=== PATIENT | male | born 1995 | race Caucasian/White ===

== ENCOUNTER 2020-07-11 12:57 | Emergency (ER) | payer BC, OTHER, SELFPAY ==
--- NOTE | ~2020-07-11 | XR_ITS ---
EXAMINATION: XR abdomen/kub 1V DATE: 07/11/2020 13:36 INDICATION: Kidney stones, back pain and hematuria. TECHNIQUE: A supine view of the abdomen on 2 radiographs was obtained. COMPARISON: None. FINDINGS: Moderate amount of stool scattered throughout the colon. No dilated loops of gas-filled bowel to sugg est obstruction. 2-3 mm calcification in the pelvis projecting near the region of the left ureteroves icular junction. There are 3 additional approximately 2 mm punctate densities projecting over the rig ht kidney suspicious for additional nephrolithiasis. IMPRESSION: 1. Likely nephrolithiasis with three 2 mm possible right renal stones and 2-3 mm likely stone in the region of the left ureterovesicular junction. Reviewed, dictated and finalized at location A. IMPRESSION: 1. Likely nephrolithiasis with three 2 mm possible right renal stones and 2-3 m m likely stone in the region of the left ureterovesicular junction.
[2020-07-11 13:05] VITALS: BP 133/77; PULSE 86; RESP 16; TEMP 36.3; O2SAT 99
--- NOTE | 2020-07-11 13:29 | ED.GENADULT ---
HPI - General Adult General Chief complaint: Urogenital-Male Stated complaint: poss UTI Time Seen by Provider: 07/11/20 13:16 Source: patient and RN notes reviewed Mode of arrival: ambulatory Limitations: no limitations History of Present Illness HPI narrative: 24-year-old male presents with complaints of dysuria with decrease urine output for the past 1-2 days. Adam reports dysuria with pain at tip of penis, diagnosis with kidney stones at [facility] and given 4 Flomax pills with some relief. No treatment since start of symptoms. No significant groin pain. No genital discharge. No concern for a STD. No fever or chills. No nausea, vomiting, or abdominal pain. No flank pain. Tolerating po intake well. Exacerbating factors consists of urinating. Denies hematuria and genital bleeding. No blood in stool or constipation. Last BM was this morning, normal. No chest pain or dyspnea. Remains active. The patient reports he have not been diagnosed with COVID-19. The patient reports he is not waiting for the results of a COVID-19 lab test. The patient reports he do not have weakness or fatigue. The patient reports he do not have a new or worsening cough. The patient reports he do not have any rhinorrhea, congestion, loss of taste or smell, sore throat, and diarrhea. Denies recent traveling. Denies concerns for COVID-19 or exposures been home with limited outdoor exposure except for essential household needs, work, and return home. At this time, patient is not suspected of having COVID-19. Some parts of this dictation were generated by voice recognition software and may contain typographical and/or grammatical inaccuracies. Related Data Home Medications Medication Instructions Recorded Confirmed gabapentin 600 mg PO TID 07/11/20 07/11/20 nortriptyline 25 mg PO DAILY 07/11/20 07/11/20 Allergies Allergy/AdvReac Type Severity Reaction Status Date / Time Sulfa (Sulfonamide Allergy Rash Verified 07/11/20 13:13 Antibiotics) Review of Systems Review of Systems: Narrative: CONSTITUTIONAL: Denies fever, chills, sweats. EYES: Denies visual changes, redness, discharge. ENT: Denies rhinorrhea, congestion, sore throat, otalgia. CARDIOVASCULAR: Denies chest pain, palpitations, edema. RESPIRATORY: Denies dyspnea, wheezing, cough. GASTROINTESTINAL: Denies nausea, vomiting, diarrhea, abdominal pain. GENITOURINARY: Denies hematuria, abnormal discharge. Complains of dysuria with decrease urination. SKIN: Denies rash or itching. MUSCULOSKELETAL: Denies acute back pain, joint pain, or myalgia. NEUROLOGIC: Denies numbness or focal weakness. PSYCHIATRIC: Denies anxiety or depression. All other systems reviewed are negative, except as documented in HPI and below. [facility] Past Medical History Medical History (Updated 07/12/20 @ 00:00 by Crissy Lundberg) Nerve damage RT arm Renal calculi Surgical History Surgical History (Updated 07/11/20 @ 13:35 by LARISSA Holloway) History of surgery on upper extremity RT Family History Family History (Updated 07/11/20 @ 13:36 by LARISSA Holloway) Father Alive and well Mother Hypertension Adam believes Social History Social History (Updated 07/11/20 @ 13:36 by LARISSA Holloway) Smoking status: Never smoker Tobacco type: cigarettes Second hand tobacco smoke exposure: No Alcohol intake: current Substance use: never Living arrangements: with family Occupation/Education: occupation Gender identity (if verbalized by the patient): Male Sexual Orientation (if Verbalized by the Patient): Straight or Heterosexual Comments At time of signature, agree with nurse past medical, surgical, social, and family history. There is no relevant family history pertinent to the presenting complaint. Exam Narrative: Exam Narrative: GENERAL: This is a well-nourished, well-developed patient, in no apparent distress. Talks in full
== END 2020-07-11 14:05 | disposition home or self-care (01) ==
PROVIDERS: Emergency Provider Nurse Practitioner Family; PCP Internal Medicine
DX: N20.0 Calculus of kidney (principal)
CPT/HCPCS: 74018; 81003; 99203; G0463